=== PATIENT | male | born 1965 | race Caucasian/White ===

== ENCOUNTER 2023-08-27 08:30 | Outpatient (REF) | payer OTHER, SELFPAY ==
--- NOTE | ~2023-08-27 | US_ITS ---
EXAMINATION: US LOWER EXTREMITY VENOUS (REFLUX EXAM), BILATERAL CLINICAL INDICATION: Varicose veins of bilateral lower extremities COMPARISON: None. TECHNIQUE: Color flow triplex imaging and compression Doppler was performed to evaluate both the deep and the superficial systems bilaterally. To evaluate the superficial system, the examination was performed in the upright position. Color-flow Doppler ultrasound and compression ultrasound were utilized. In addition, maneuvers were utilized to demonstrate reflux. FINDINGS: 1. DEEP VENOUS ULTRASOUND OF THE RIGHT LOWER EXTREMITY: Common Femoral Vein: Compressible, normal respiratory variation and augmented flow. Femoral Vein: Compressible, normal color flow and augmentation. Popliteal Vein: Compressible, normal augmentation. Deep Reflux: There is no evidence of reflux in the deep system in either the common femoral vein or the popliteal vein. There is no evidence of a Swann's cyst. 2. SUPERFICIAL ULTRASOUND WITH DOPPLER OF RIGHT LOWER EXTREMITY: GREAT SAPHENOUS VEIN: Saphenofemoral Junction: 0.9 cm; Reflux: 0 ms Proximal Thigh: 0.5 cm; Reflux: 0 ms Mid Thigh: 0.4 cm; Reflux: Greater than 2456 ms Above Knee: 0.5 cm; Reflux: Greater than 2440 ms At Knee: 0.6 cm; Reflux: Greater than 2484 ms Below Knee: 0.6 cm; Reflux: Greater than 2836 ms Mid Calf: 0.2 cm; Reflux: 0 ms Ankle: 0.3 cm; Reflux: 0 ms DUPLICATED MEDIAL GREAT SAPHENOUS VEIN: Diameter: None Imaged Reflux: NA DUPLICATED LATERAL GREAT SAPHENOUS VEIN: Diameter: None Imaged Reflux: NA SMALL SAPHENOUS VEIN: Proximal: 0.2 cm; Reflux: 0 ms Distal: 0.2 cm; Reflux: 580 ms VEIN OF GIACOMINI: None Imaged. PERFORATORS: Location: 29 cm from calcaneus Size: 0.4 cm Reflux: 428 ms Location: Mid calf Size: 0.3 cm Reflux: 0 ms Location: Mid calf Size: 0.2 cm Reflux: 0 ms Location: Distal calf Size: 0.2 cm Reflux: 0 ms VARICOSITIES: Location: Mid small saphenous vein Size: 0.2 cm Reflux: 760 ms VARICOSITIES: Location: Distal small saphenous vein Size: 0.4 cm Reflux: Greater than 2680 ms VARICOSITIES: Location: Saphenofemoral junction Size: 0.4 cm Reflux: Greater than 2484 ms VARICOSITIES: Location: Proximal thigh Size: 0.4 cm Reflux: Greater than 2792 ms VARICOSITIES: Location: SFJ to mid thigh Size: 0.7 cm Reflux: Greater than 2820 ms VARICOSITIES: Location: Distal thigh Size: 0.5 cm Reflux: Greater than 2500 ms VARICOSITIES: Location: Proximal calf Size: 0.4 cm Reflux: Greater than 2640 ms VARICOSITIES: Location: Mid calf Size: 0.6 cm Reflux: 2708 ms 3. DEEP VENOUS ULTRASOUND OF THE LEFT LOWER EXTREMITY: Common Femoral Vein: Compressible, normal respiratory variation and augmented flow. Femoral Vein: Compressible, normal color flow and augmentation. Popliteal Vein: Compressible, normal augmentation. Deep Reflux: There is no evidence of reflux in the deep system in either the common femoral vein or the popliteal vein. There is no evidence of a Swann's cyst. 4. SUPERFICIAL ULTRASOUND WITH DOPPLER OF LEFT LOWER EXTREMITY: GREAT SAPHENOUS VEIN: Saphenofemoral Junction: 0.8 cm; Reflux: 0 ms Proximal Thigh: 0.6 cm; Reflux: 0 ms Mid Thigh: 0.3 cm; Reflux: 0 ms Above Knee: 0.4 cm; Reflux: 0 ms At Knee: 0.4 cm; Reflux: 0 ms Below Knee: 0.3 cm; Reflux: 0 ms Mid Calf: 0.3 cm; Reflux: 0 ms Ankle: 0.2 cm; Reflux: 0 ms DUPLICATED MEDIAL GREAT SAPHENOUS VEIN: Diameter: None Imaged Reflux: NA DUPLICATED LATERAL GREAT SAPHENOUS VEIN: Diameter: 0.6 cm Reflux: 0 ms SMALL SAPHENOUS VEIN: Proximal: 0.2 cm; Reflux: 0 ms Distal: 0.2 cm; Reflux: 0 ms VEIN OF GIACOMINI: 0.3 cm. No reflux PERFORATORS: Location: Small saphenous vein proximally Size: 0.2 cm Reflux: 0 ms Location: Mid small saphenous vein Size: 0.1 cm Reflux: 0 ms VARICOSITIES: Location: None Imaged Size: NA Reflux: NA US/US venous duplex LE BI IMPRESSION: 1. Right: Severe reflux >2836 ms in the right great saphenous vein (0.6 cm). 2. Multiple refluxing varicosities throughout the right lower extremity. 3. Left: No evidence of deep venous thrombosis or GSV reflux.
== END 2023-08-27 08:31 | disposition home or self-care (01) ==
LOC: HO.US 08:30
PROVIDERS: PCP Family Medicine; Visit Provider Surgery Vascular Surgery
DX: I83.893 Varicose veins of bilateral lower extremities with other complications (principal)
CPT/HCPCS: 93970

== ENCOUNTER 2023-09-23 15:25 | Outpatient (AMB) | payer OTHER, SELFPAY ==
--- NOTE | 2023-09-23 15:25 | MHC.OFFVIS ---
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 Gusman in [place]. Bilateral VV w/ Right LE worse than Left LE. Worse when on his feet. Of note had weight loss surgery 18 yrs ago and VV worsened after that. 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 Complaints include pain over varicosities, swelling of lower extremities, cramping, fatigue, and heaviness of the lower extremities. It has been affecting there daily activities including walking. It is noted more so in right leg. Patient denies any previous venous surgery or injections. Patient denies any history of DVT/ PE. Patient denies any history of phlebitis. Trial of compression includes - [id number] They now present for vascular evaluation regarding their varicose veins. [facility] Medical History (Updated 09/24/23 @ 12:39 by Geraldo Griffin MD) Herniated disc, cervical Surgical History (Updated 09/23/23 @ 15:35 by EDUIN Barrientos) H/O plastic surgery Status post ablation of incompetent vein using laser (~2012) Review of Systems Const Reports as per HPI ENT Reports no additional complaints Card Denies chest pain, Denies chest pain at rest and Denies chest pain with activity Resp Denies chest congestion and Denies cough GI Reports no additional complaints Musc Details: pain over varicosities, aching of lower extremities, swelling, cramping, heaviness and tiredness, itching Denies abnormal gait Skin/Breast Reports pruritus and Denies wounds Neuro Reports no additional complaints and Denies abnormal gait Psych Denies no additional complaints Physical Exam Vital Signs: BMI result Body Mass Index 33.2 Const General: cooperative, healthy appearing and comfortable Orientation/consciousness: oriented to person, oriented to place and oriented to time Neck Carotids: no bruits Chest Chest palpation & inspection: normal inspection of the chest and normal palpation of entire chest wall Resp Effort & Inspection: normal respiratory effort and able to speak in complete sentences Cardio Rate: regular rate Heart sounds: S1 normal heart sound present and S2 normal heart sound present Peripheral pulses: Peripheral pulses 2+ throughout GI Inspection: Yes normal to inspection Skin Other: +2 edema, large rope-like varicosities greater than 4 mm right calf and thigh CEAP Classification C4 - skin color changes Ep - Etiology Primary As - superficial veins P - reflux General skin exam: dry skin Neuro General: oriented to person, oriented to place and oriented to time Extrem Right lower extremity: full ROM, normal capillary refill and edema Left lower extremity: full ROM, normal capillary refill and edema Psych Mental Status: mental status grossly normal Results Reviewed Results Reviewed: Brief summary of venous insufficiency testing is as follows: right great saphenous vein: Positive right small saphenous vein: negative right accessory vein: Present and positive left great saphenous vein: negative left small saphenous vein: negative left accessory vein: none present Please note there is no evidence of any venous aneurysms or significant tortuosity Assessment & Plan Assessment & Plan (1) Varicose veins of right lower extremity with inflammation: Code(s): I83.11 - Varicose veins of right lower extremity with inflammation Category: Medical Plan: This patient has varicose veins with inflammation. They continue to be a source of discomfort for the patient. The patient has tried conservative treatment with compression, leg elevation and exercise program for over 3 months time. They have been compliant with all treatment. This has provided minimal relief for the patient. I do not anticipate this course of treatment will alter the underlying etiology. The patient has been scheduled for lower extremity venous treatment inclusive of --- right great saphenous vein Cyanoacralate ablation. Risks, benefits, and complications of this procedure has been discussed in detail with the patient including but not limited to bleeding, infection, and the development of a DVT. The patient has demonstrated a clear understanding and has consented. We will schedule the patient as soon as possible. Thank you for allowing us to participate in this patient's care. If there are any questions or concerns please do not hesitate to contact us. Coding Level of Care Code New Pt Level 4 (32375) Diagnoses Varicose veins of right lower extremity with inflammation I83.11
[2023-09-23 15:26] VITALS: BMI 33.2
== END 2023-09-24 08:43 | disposition home or self-care (01) ==
PROVIDERS: PCP Family Medicine; Visit Provider Surgery Vascular Surgery
DX: I83.11 Varicose veins of right lower extremity with inflammation (principal)
CPT/HCPCS: 99204

== ENCOUNTER → 2023-09-23 15:25 | Outpatient (BNVA) | payer OTHER, SELFPAY | PROVIDERS: PCP Family Medicine; Visit Provider Surgery Vascular Surgery | DX: I83.11 Varicose veins of right lower extremity with inflammation (principal) | CPT/HCPCS: 99202 ==

== ENCOUNTER 2023-10-03 13:31 | Outpatient (AMB) | payer OTHER, SELFPAY ==
[2023-10-03 13:49] VITALS: BMI 33.2
--- NOTE | 2023-10-03 13:49 | MHC.OFFVIS ---
Vital Signs 10/03/23 13:49 Height 5 ft 9 in Weight 225 lb BMI 33.2 Intake Visit Reasons: Right GSV Venaseal Accompanied by: Self / Same As Patient Allergies cephalexin [From Keflex] Allergy (Severe, Verified 10/03/23 13:49) Gastrointestinal Upset [facility] Medical History Herniated disc, cervical Surgical History H/O plastic surgery Status post ablation of incompetent vein using laser (~2012) Physical Exam Vital Signs: BMI result Body Mass Index 33.2 Office Procedures Vascular Office Procedure Details Details: Diagnosis: Right Leg varicose veins with inflammation Procedure: Endovenous Ablation of the right Great Saphenous Vein with VenaSeal Closure System Anesthesia: Local infiltration 5 cc, Estimated Blood Loss: min Specimen: none Duplex ultrasound was used to map out the insufficient saphenous vein, and access was determined and marked on the overlying skin. The depth and diameter of the vein(s) to be treated was documented. The patient was placed supine on the procedure table and the leg was prepped and draped using sterile technique. Ultasound guidance was again used to localize the access site. 1% lidocaine was injected as a local anesthetic in the subcutaneous tissues at the target location in the GSV in the lower leg. Using ultrasound guidance, access was gained at this location with the 19 gauge thin walled access needle and followed by introduction of a short guidewire, location confirmed with ultrasound. A small, 3 mm incision was made at the access site to allow for introduction and placement of the 7 Fr x7cm introducer/dilator. The dilator and guidewire were removed. The 0.035 guidewire from the VenaSeal kit was then introduced and positioned at the saphenofemoral junction using ultrasound guidance. The 80 cm 7 Fr introducer sheath/dilator was positioned 5cm from the saphenofemoral junction. The guidewire and dilator were removed, and the remaining sheath was flushed with sterile saline, with the syringe remaining in place prior to the next steps. The cyanoacrylate adhesive was precisely primed into the 5 F delivery catheter and this catheter/syringe combination was attached within the dispenser gun. This assembly was introduced through the 7F sheath and positioned 5 cm caudal of the saphenofemoral junction under ultrasound guidance. The steps from the IFU were followed for dispensing amounts, locations and compression times, 2 aliquots proximally with 3 minutes of compression, and 1 aliquot every 3 cm distally with 30 sec of compression along the course of the vessel. Following the last injection and compression sequence, the catheter and introducer sheath were pulled out from the access site. Hemostasis was achieved with manual compression and an adhesive bandage was applied to the incision. Ultrasound confirmed complete coaptation and closure of the treated segments of the GSV, and the absence of any DVT at the saphenofemoral junction. Treatment time was approximately 6 minutes and the vein length treated was 30 cm. The drapes were removed and the patient cleaned and prepared for discharge. Post op ultrasound check is scheduled for 48-72 hours and the patient was given written post-op instructions. 48507 - Endoven Ther Chem Adhes 1st All charges added?: Procedure code (CPT) selection complete Assessment & Plan Assessment & Plan (1) Varicose veins of right lower extremity with inflammation: Comment: 10/03/2023 - right great saphenous vein Cyanoacralate ablation Code(s): I83.11 - Varicose veins of right lower extremity with inflammation Category: Medical Plan: See op note Coding Level of Care Code Procedure Only Diagnoses Varicose veins of right lower extremity with inflammation I83.11 CPT Codes Details - Vascular 3: 75591 - Endoven Ther Chem Adhes 1st ([id number])
== END 2023-10-03 15:13 | disposition home or self-care (01) ==
PROVIDERS: PCP Family Medicine; Visit Provider Surgery Vascular Surgery
DX: I83.11 Varicose veins of right lower extremity with inflammation (principal)
CPT/HCPCS: 36482

== ENCOUNTER → 2023-10-03 13:31 | Outpatient (BNVA) | payer OTHER, SELFPAY | PROVIDERS: PCP Family Medicine; Visit Provider Surgery Vascular Surgery | DX: I83.11 Varicose veins of right lower extremity with inflammation (principal) | CPT/HCPCS: 36482 ==

== ENCOUNTER 2023-10-06 07:52 | Outpatient (REF) | payer OTHER, SELFPAY ==
--- NOTE | ~2023-10-06 | US_ITS ---
EXAMINATION: US VENOUS ULTRASOUND WITH DOPPLER LOWER EXTREMITY, RIGHT CLINICAL INFORMATION: s/p GSV venaseal 10/03/2023. Rule out DVT COMPARISON: Venous duplex ultrasound 08/27/2023 TECHNIQUE: Ultrasound of the deep veins is performed from the hip to the calf with compression sonography and color and pulse Doppler assessment. Spectral analysis with color-flow imaging is performed. FINDINGS: The great saphenous vein is closed 2.6 cm from the SFJ. There is normal venous compression and respiratory variation and augmented flow. The visualized common femoral vein, superficial femoral vein, profunda femoral vein, popliteal vein, and the trifurcation region shows no evidence of deep venous thrombosis. There is no significant popliteal fossa cyst. US/US venous duplex LE RT IMPRESSION: 1. The great saphenous vein is closed 2.6 cm from the SFJ. 2. No DVT demonstrated in the right lower extremity.
== END 2023-10-06 07:53 | disposition home or self-care (01) ==
LOC: HO.US 07:52
PROVIDERS: PCP Family Medicine; Visit Provider Surgery Vascular Surgery
DX: M79.604 Pain in right leg (principal)
CPT/HCPCS: 93971

== ENCOUNTER 2023-10-23 09:01 | Outpatient (AMB) | payer OTHER, SELFPAY ==
--- NOTE | 2023-10-23 09:05 | A.OFFVIS_ITS ---
Intake Visit Reasons: 2 week follow up R GSV Venaseal 10/03/23 Intake Note: Two week follow up s/p right gsv venaseal. Patient has no complaints. Allergies cephalexin [From Keflex] Allergy (Severe, Verified 10/23/23 09:05) Gastrointestinal Upset HPI HPI 2 week follow up R GSV Venaseal 10/03/23: Details: Very pleasant 57-year-old gentleman presents for follow-up status post right gr eat saphenous vein ablation. Reports in general leg swelling and discomfort have improved. He does have some right calf varicosities which have slightly decreased in size but still are source of pain and discomfort for him. He now presents for routine follow-up. Of note postprocedure ultrasound was negative for DVT PFSH Medical History Herniated disc, cervical Surgical History H/O plastic surgery Status post ablation of incompetent vein using laser (~2012) Review of Systems Const Reports as per HPI ENT Reports no additional complaints Card Denies chest pain, Denies chest pain at rest and Denies chest pain with activity Resp Denies chest congestion and Denies cough GI Reports no additional complaints Musc Details: pain over varicosities, aching of lower extremities, swelling, cramping, heaviness and tiredness, itching Denies abnormal gait Skin/Breast Reports pruritus and Denies wounds Neuro Reports no additional complaints and Denies abnormal gait Psych Denies no additional complaints Physical Exam Const General: cooperative, healthy appearing and comfortable Orientation/consciousness: oriented to person, oriented to place and oriented to time Neck Carotids: no bruits Chest Chest palpation & inspection: normal inspection of the chest and normal palpation of entire chest wall Resp Effort & Inspection: normal respiratory effort and able to speak in complete sentences Cardio Rate: regular rate Heart sounds: S1 normal heart sound present and S2 normal heart sound present Peripheral pulses: Peripheral pulses 2+ throughout GI Inspection: Yes normal to inspection Skin Other: +2 edema, large rope-like varicosities greater than 4 mm right calf and thigh CEAP Classification C4 - skin color changes Ep - Etiology Primary As - superficial veins P - reflux General skin exam: dry skin Neuro General: oriented to person, oriented to place and oriented to time Extrem Right lower extremity: full ROM, normal capillary refill and edema Left lower extremity: full ROM, normal capillary refill and edema Psych Mental Status: mental status grossly normal Assessment & Plan Assessment & Plan (1) Varicose veins of right lower extremity with inflammation: Comment: 10/03/2023 - right great saphenous vein Cyanoacralate ablation Code(s): I83.11 - Varicose veins of right lower extremity with inflammation Category: Medical Plan: This patient has varicose veins with inflammation. They continue to be a source of discomfort for the patient. The patient has tried conservative treatment with compression, leg elevation and exercise program for over 3 months time. They have been compliant with all treatment. This has provided minimal relief for the patient. I do not anticipate this course of treatment will alter the underlying etiology. The patient has been scheduled for lower extremity venous treatment inclusive of --- right leg microphlebectomy. Risks, benefits, and complications of this procedure has been discussed in detail with the patient including but not limited to bleeding, infection, and the development of a DVT. The patient has demonstrated a clear understanding and has consented. We will schedule the patient as soon as possible. Thank you for allowing us to participate in this patient's care. If there are any questions or concerns please do not hesitate to contact us. Coding Level of Care Code Est Pt Level 4 (54037) Diagnoses Varicose veins of right lower extremity with inflammation I83.11
== END 2023-10-23 09:19 | disposition home or self-care (01) ==
PROVIDERS: PCP Family Medicine; Visit Provider Surgery Vascular Surgery
DX: I83.11 Varicose veins of right lower extremity with inflammation (principal)
CPT/HCPCS: 99214

== ENCOUNTER → 2023-10-23 09:01 | Outpatient (BNVA) | payer OTHER, SELFPAY | PROVIDERS: PCP Family Medicine; Visit Provider Surgery Vascular Surgery | DX: I83.11 Varicose veins of right lower extremity with inflammation (principal) | CPT/HCPCS: 99212 ==

== ENCOUNTER 2023-12-01 09:07 | Day surgery (SDC) | payer OTHER, SELFPAY ==
[2023-12-01] VITALS (7 sets, daily range): BP systolic 131–165; BP diastolic 74–90; PULSE 57–72; RESP 12–16; TEMP 36.1–36.6; O2SAT 98–100; BMI 30.4
--- NOTE | 2023-12-01 07:38 | MHC.SHP ---
Pre-Procedural Eval Section A - 24 Hr Update-Section A only Date of Service: 12/01/23 The patient is an INPATIENT: No Changes since office visit: Yes Patient answered all questions The patient has been examined within 24 hours of the surgical procedure. The History & Physical has been completed within 30 days and I have reviewed it.: Yes Section B - Complete if H&P > 30 days Chief Complaint: Varicose veins of right lower extremity with infla Allergies: Allergies Allergy/AdvReac Type Severity Reaction Status Date / Time cephalexin [From Keflex] Allergy Severe Gastrointestinal Verified 10/23/23 09:05 Upset Plan I have reviewed the history and physical and performed a pertinent physical examination on my patient. No changes have occurred unless specified. Time Spent With Patient Time: Total time managing care of this patient today ____ minutes.
--- NOTE | 2023-12-01 09:05 | HO.ANESPROP2 ---
HPI - Anesthesia Eval Consult details Narrative: 57yo male patient for Right lower extremity Micro Phlebectomy PMFSH Active Problems Active Problems: All Active Problems (Updated 12/01/23 @ 14:02 by Cindy Ashley MD) Varicose veins of right lower extremity with inflammation (Acute) Marijuana- Last used a few days ago Past Medical History Medical History Herniated disc, cervical Family History Family history of problems with anesthesia: No Surgical History Surgical History Hx of removal of cyst Hx of cervical spine surgery H/O plastic surgery Status post ablation of incompetent vein using laser (~2012) History of Problems with Anesthesia: Yes (Urinary retention ) Social History Social History Patient Tobacco Use Status: Never used Tobacco Use of substances other than those prescribed or required for medical reasons: Yes Substance Use Type Other:: Smoke/Edibles Substance Use Frequency: Weekly Have you been hit, kicked, punched, or otherwise hurt by someone within the past year? If so, by whom?: No Are you DNR?: No Advance Directives: No Advance Directives Information Provided: Yes Recently lost weight without trying: No Meds Allergies Allergy/AdvReac Type Severity Reaction Status Date / Time cephalexin [From Keflex] Allergy Severe Gastrointestinal Verified 10/23/23 09:05 Upset Home Medications ?Medication ?Instructions ?Recorded ?Confirmed ?Last Taken ?Type ascorbate calcium (vitamin C) 500 500 mg PO DAILY 09/23/23 12/01/23 11/30/23 History mg tablet cholecalciferol (vitamin D3) 25 25 mcg PO DAILY 09/23/23 12/01/23 11/30/23 History mcg (1,000 unit) capsule multivitamin (Daily Multi-Vitamin 1 tab PO DAILY 09/23/23 12/01/23 11/30/23 History tablet) Exam Height,Weight and Vital Signs: Height 5 ft 9 in Weight 93.44 kg Vital Signs Temp Pulse Resp BP Pulse Ox O2 Del Method 12/01/23 09:34 97.0 F 65 16 165/90 H 98 Room Air Airway Mallampati Class: II TM Dist: >3cm Neck ROM: Full Loose/Missing/Broken Teeth: Yes (Missing tooth too left back) Heart: RRR Lungs: CTAB Assessment and Plan Assessment Anesthesia Assessment: Anesthesia Plan Discussed and Chart Reviewed Final Anesthetic Review Family History of Problems with Anesthesia: No History of Problems with Anesthesia: Yes (Urinary retention ) NPO: Yes ASA Class: II Final Preanesthetic Review: No Changes in Pt Med Stat, Meds/Allgs Chart Reviewed, Consent Obtained/Reviewed and Anes Risks/Benef Reviewed Patient Risk: Low Procedure Risk: Low Assessment/Block/Sedation in SS: Assess/Block/Sedation-SS Anesthetic Plan Anesthetic Plan: GA Disposition: Standard PACU
[2023-12-01] MEDS: Lactated Ringers 1,000 ML 80 ML IVCONT (09:38)
--- NOTE | 2023-12-01 15:10 | W.PM.OPN ---
Operative Note Operative Note Date of Service: 12/01/23 Narrative: Operative note by [facility] Preoperative diagnosis: Right leg varicose veins with inflammation Postoperative diagnosis: Same Procedure:1 right leg microphlebectomy (21) 2. Ligation of venous cluster (1) Surgeon:Geraldo Griffin M.D. General Maintenance Mechanic: None Anesthesia: General Specimens: 1 Drains: None Estimated blood loss: 100 mL Indications: 57-year-old gentleman with history significant for venous disease. He has significantly large varicosities greater than 5 mm which have been a source of pain and discomfort for him. He now presents for microphlebectomy. The patient has signed the informed consent after reviewing risks, complications, benefits, and alternatives previously discussed with the patient. The patient was given the opportunity to ask any additional questions or voice any concerns. All questions were answered to the patient's satisfaction. Procedure in detail: Varicose veins were marked in the standing position on the right leg and the patient was then placed in the supine position. The right lower extremity was prepared and draped to allow knee flexion in the sterile field. The patient had large superficial varicose veins with significant symptoms of pain. It was therefore determined to perform microphlebectomies of the clusters of varicose veins. The patient had bulging varicose veins which were previously marked in the standing position. A small stab incision was made longitudinally directly overlying the varicose vein in the calf and the varicose vein was grasped with a hemostat aided by a vein hook. It was then dissected as far proximally and distally as possible and avulsed. A total of 21 stab incisions were made and the procedure of stab phlebectomies was repeated 21 times. In addition there was a cluster in the right calf. Incision was made at the base of the cluster. The base was ligated with a 3-0 Vicryl stitch. Residual varicosities were removed with mosquito. Direct pressure was used for hemostasis Hemostasis was checked and stab incision sites were closed with steri-strips and sterile dressing was given with gauze and krilex wrap followed by an pieter bandage. There were no complications and blood loss was minimal. Post-Op instructions were given and a follow-up appointment was recommended. This note is constructed using voice recognition software. While every effort has been made to ensure accuracy, veneer stock layer errors may have been included. Thank you for allowing me to participate in the care of your patient. Yours sincerely, Geraldo Griffin MD, FACS, R.P.V.I.
== END 2023-12-01 16:38 | disposition home or self-care (01) ==
PROVIDERS: PCP Family Medicine; Visit Provider Surgery Vascular Surgery
PROC: (CPT 37766; principal; 2023-12-01 10:40)
DX: I83.11 Varicose veins of right lower extremity with inflammation (principal); Z79.899 Other long term (current) drug therapy; Z88.1 Allergy status to other antibiotic agents; Z98.890 Other specified postprocedural states
CPT/HCPCS: 37766; 37785; 88304; A4364; J0131; J0690; J1100; J2405; J2704; J2795; J3010; J3370

== ENCOUNTER → 2023-12-01 09:07 | Outpatient (BNV) | payer OTHER, SELFPAY | PROVIDERS: PCP Family Medicine; Visit Provider Surgery Vascular Surgery | DX: I83.11 Varicose veins of right lower extremity with inflammation (principal) | CPT/HCPCS: 37766; 37785 ==

== ENCOUNTER 2023-12-15 10:17 | Outpatient (AMB) | payer OTHER, SELFPAY ==
--- NOTE | 2023-12-15 10:28 | MHC.OFFWIV ---
Intake Vital Signs 12/15/23 10:33 Height 5 ft 9 in Weight 205 lb 8 oz BMI 30.3 BP 118/70 Blood Pressure Location Rt brachial Position Sitting Respiration 14 Pulse 87 Pulse Source Pulse Oximeter Temp 97.7 F Temp Source Skin Pulse Oximetry (%) 100 Oxygen Delivery Method Room Air Intake Visit Reasons: Body ache, fever and chills no congestion. Intake Note: patient complaining of dizziness, lightheaded, weak, shaky, body aches, fever, and heaviness when taking a deep breath x 1 week Patient Tobacco Use Status: Never used Tobacco Allergies cephalexin [From Keflex] Allergy (Severe, Verified 12/15/23 10:32) Gastrointestinal Upset HPI HPI Comments History of Present Illness Details 58 y/o M here today with complaints of feeling weak and dizzy. Reports that he had varicose vein removal of the right lower extremity 2 weeks ago. One week postoperatively he returned to exercise. Immediately after exercising he started to feel unwell, described initially as anxious and tired. He thought really nothing of it and thought that perhaps it was just the anesthesia wearing off. The next day while doing light chores around the house he began to feel weak, shaky, lightheaded, heaviness in his lungs with pain when he took a deep breath. He also has nausea without any vomiting. He was not sure if he was coming down with something so on Friday he went to bed to rest. He has been in bed and sedentary since this time trying to feel better. Reports that his symptoms did not improve. However upon waking this morning he does admit to feeling better. He does report 1 episode of fever. However denies any further URI symptoms such as sore throat, ear pain, runny nose, cough, chest congestion. Exam Awake alert oriented, no acute distress PERRLA Regular rate and rhythm Lung sounds clear to auscultation bilat Normal pedal pulses bilat. Right lower extremity with Steri-Strips intact over surgical incisions. Resolving ecchymosis to right thigh. No erythema, warmth or drainage to suggest infection. Plan Clinical suspicion for a pulmonary embolism given the story above. Advised to seek care in the emergency room. The patient is willing to go to [facility]. And expect has been called to [facility] emergency room at 10:57. The patient is stable and willing to go via private transport. Advised to not eat or drink and go directly to the emergency room. He should follow up with primary care once the workup is complete. This note is constructed using voice recognition software. While every effort has been made to ensure accuracy in composition stone applicator, still errors may have been included Sometimes, these errors may affect the content or meaning of the given sentence . Total time spent caring for the patient today was 30 minutes. This includes time spent before the visit reviewing the chart, time spent during the visit, and time spent after the visit on documentation PFSH Medical History Herniated disc, cervical Surgical History Hx of removal of cyst Hx of cervical spine surgery H/O plastic surgery Status post ablation of incompetent vein using laser (~2012) Social History Patient Tobacco Use Status: Never used Tobacco Physical Exam Vital Signs: Last Vital Signs Temp 97.7 F 12/15/23 10:33 Pulse 87 12/15/23 10:33 Resp 14 12/15/23 10:33 BP 118/70 12/15/23 10:33 Pulse Ox 100 12/15/23 10:33 Oxygen Delivery Method Room Air 12/15/23 10:33 BMI result Body Mass Index 30.3 Assessment & Plan Assessment & Plan (1) Suspected pulmonary embolism: Code(s): R09.89 - Other specified symptoms and signs involving the circulatory and respiratory systems (2) Varicose veins of right lower extremity with inflammation: Comment: 10/03/2023 - right great saphenous vein Cyanoacralate ablation Code(s): I83.11 - Varicose veins of right lower extremity with inflammation Plan: . (3) Chest pain: Code(s): R07.9 - Chest pain, unspecified Qualifiers: Chest pain type: chest pain on breathing Qualified Code(s): R07.1 - Chest pain on breathing Plan: . (4) Dizziness: Code(s): R42 - Dizziness and giddiness Plan: . Plan . Coding Level of Care Code Est Pt Level 4 (60977) Diagnoses Suspected pulmonary embolism R09.89 Varicose veins of right lower extremity with inflammation I83.11 Chest pain on breathing R07.1 Chest pain type: chest pain on breathing Dizziness R42
[2023-12-15 10:33] VITALS: BP 118/70; PULSE 87; RESP 14; TEMP 36.5; O2SAT 100; BMI 30.3
== END 2023-12-15 10:55 | disposition home or self-care (01) ==
PROVIDERS: PCP Family Medicine; Visit Provider Nurse Practitioner Family
DX: R09.89 Other specified symptoms and signs involving the circulatory and respiratory systems (principal); I83.11 Varicose veins of right lower extremity with inflammation; R07.1 Chest pain on breathing; R42 Dizziness and giddiness
CPT/HCPCS: 99214

== ENCOUNTER 2023-12-18 08:53 | Outpatient (AMB) | payer OTHER, SELFPAY ==
[2023-12-18 09:04] VITALS: BMI 30.3
--- NOTE | 2023-12-18 09:04 | MHC.OFFVIS ---
Vital Signs 12/18/23 09:04 Height 5 ft 9 in Weight 205 lb BMI 30.3 Intake Visit Reasons: 2 week follow up right leg micro Intake Note: 2 week follow up Right LE Micro 12/01/23. Pt states that his leg did have bruising but overall healed. He was sick the past week and a half and was in the ED & urgent care w/ suspected PE, but s/p CTA chest was negative. Accompanied by: Self / Same As Patient Allergies cephalexin [From Keflex] Allergy (Severe, Verified 12/18/23 09:13) Gastrointestinal Upset HPI HPI 2 week follow up right leg micro: Details: Very pleasant 58-year-old gentleman presents for follow-up status post right lower extremity operative microphlebectomy. This was done on 12/01/2023. Reports he did fairly well from that procedure. Postoperatively he did develop a viral illness and was concerned about that along with lower extremity pain. He did follow-up at an urgent care center which did do a workup for a PE which turned out to be negative. In terms of his leg now he is doing significantly better. Overall varicosities have decreased. He does have some postprocedure bruising and mild tenderness PFSH Medical History Herniated disc, cervical Surgical History Hx of removal of cyst Hx of cervical spine surgery H/O plastic surgery Status post ablation of incompetent vein using laser (~2012) Social History Patient Tobacco Use Status: Never used Tobacco Review of Systems Const All systems reviewed & are unremarkable except as noted in HPI and below Reports no additional complaints ENT Reports Normal hearing present Card Denies chest pain, Denies chest pain at rest, Denies chest pain with activity and Denies pedal edema Resp Denies cough GI Denies abdominal pain Musc Denies abnormal gait, Denies muscle cramps and Denies radiating pain into limb Skin/Breast Denies skin ulcer and Denies wounds Neuro Reports Normal hearing present and Denies abnormal gait Psych Reports no additional complaints Physical Exam Vital Signs: BMI result Body Mass Index 30.3 Const General: cooperative, healthy appearing and comfortable Orientation/consciousness: oriented to person, oriented to place and oriented to time HEENT Head: Yes normal to inspection Neck Neck: Yes normal visual inspection Carotids: no bruits Chest Chest palpation & inspection: normal inspection of the chest Resp Effort & Inspection: normal respiratory effort and able to speak in complete sentences Auscultation: clear to auscultation bilaterally, no crackles, no rales, no rhonchi and no wheezes Cardio Rate: regular rate Rhythm: regular rhythm Heart sounds: S1 normal heart sound present and S2 normal heart sound present Bruits: no carotid bruits Peripheral pulses: Peripheral pulses 2+ throughout GI Inspection: Yes normal to inspection Skin Other: Right leg incisions well healing Wounds: no wounds Hair: normal Neuro General: oriented to person, oriented to place and oriented to time Cranial nerves: Yes CN's II-XII intact bilaterally and Yes Normal hearing present Cognition (Neuro): normal cognition Motor exam (neuro): 5/5 motor strength present throughout Extrem Other: venous exam: No significant superficial varicosities or spider telangiectasias, minimal edema General: No clubbing, No cyanosis and No edema Psych Appearance: grossly normal Mental Status: mental status grossly normal Speech and movement: Normal speech and movement present Assessment & Plan Assessment & Plan (1) Varicose veins of right lower extremity with inflammation: Comment: 10/03/2023 - right great saphenous vein Cyanoacralate ablation 12/01/2023 - operative right leg microphlebectomy Code(s): I83.11 - Varicose veins of right lower extremity with inflammation Category: Medical Plan: The patient has done extremely well with all venous treatments. Patient's may often experience postprocedure phlebitic episodes and I have discussed with the patient use of warm compresses and NSAIDS if tolerated for pain discomfort. In addition, I have discussed continued conservative measures including use of compression, leg elevation, and exercise. The patient was also given an information sheet regarding appropriate use of compression stockings and future purchases. Thank you for allowing us to care for your patient with venous disease. Coding Level of Care Code Est Pt Level 3 (12050) Diagnoses Varicose veins of right lower extremity with inflammation I83.11
== END 2023-12-18 09:35 | disposition home or self-care (01) ==
PROVIDERS: PCP Family Medicine; Visit Provider Surgery Vascular Surgery
DX: I83.11 Varicose veins of right lower extremity with inflammation (principal)
CPT/HCPCS: 99024

== ENCOUNTER → 2023-12-18 08:53 | Outpatient (BNVA) | payer OTHER, SELFPAY | PROVIDERS: PCP Family Medicine; Visit Provider Surgery Vascular Surgery | DX: I83.11 Varicose veins of right lower extremity with inflammation (principal) | CPT/HCPCS: 99212 ==

== ENCOUNTER 2023-12-22 09:03 | Outpatient (AMB) | payer OTHER, SELFPAY ==
--- NOTE | 2023-12-22 09:47 | MHC.OFFWIV ---
Intake Vital Signs 12/22/23 09:48 Height 5 ft 9 in Weight 204 lb BMI 30.1 BP 116/82 Blood Pressure Location Lt brachial Position Sitting Pulse 80 Pulse Source Pulse Oximeter Temp 98.3 F Temp Source Oral Pulse Oximetry (%) 98 Oxygen Delivery Method Room Air Intake Visit Reasons: EP dizzy, fatigued, heavyness in chest/ache Intake Note: pt c/o dizziness, fatigue, heaviness in chest/ache. Started Patient Tobacco Use Status: Never used Tobacco Allergies cephalexin [From Keflex] Allergy (Severe, Verified 12/22/23 09:47) Gastrointestinal Upset Do you need a note to return to daycare/school/sports/work: No HPI HPI Comments History of Present Illness Details Patient is a 58-year-old male complaining of dizziness, fatigue and generally feeling unwell for the last few weeks. Patient states on November 30 he had some varicose veins removed by Dr. Griffin and has been feeling these symptoms since that date, off and on. He states they got dramatically worse about a week after the surgery where he could not get out of bed for a few days, he ended up going to an urgent care where they thought he had a pulmonary embolism because of his recent surgery so he went to the emergency room had a CTA where he was clear of a PE. He states he was told his vital signs were perfect and the recent they thought he had a PE was because of the surgery and the fact that he was getting short of breath while he was working out. He states he was generally just fatigued and had some pain when he took a deep breath but denied any head congestion or chest congestion. He states he has had on and off low-grade fevers and frontal headaches with a T-max of 100.6F during that time but they have resolved. He states he came in today because now he has started with right ear pain but denies any change in his hearing. He states he has had slight ear itching and irritation but not pain starting 10 months ago and that has just been lingering not an issue to where he needed to be evaluated. He also states the dizziness has gotten worse. He does not take an allergy medication each day and denies a history of seasonal allergies. He states he typically works out 4 to 5 times a week and is up doing 4-8 hours of house work each day so this has exhaustion he is feeling is far off from his baseline. [facility] Medical History Herniated disc, cervical Surgical History Hx of removal of cyst Hx of cervical spine surgery H/O plastic surgery Status post ablation of incompetent vein using laser (~2013) Social History Patient Tobacco Use Status: Never used Tobacco Review of Systems Const All systems reviewed & are unremarkable except as noted in HPI and below Physical Exam Vital Signs: Last Vital Signs Temp 98.3 F 12/22/23 09:48 Pulse 80 12/22/23 09:48 BP 116/82 12/22/23 09:48 Pulse Ox 98 12/22/23 09:48 Oxygen Delivery Method Room Air 12/22/23 09:48 BMI result Body Mass Index 30.1 Const General: cooperative, healthy appearing, comfortable and no acute distress Orientation/consciousness: patient oriented x3 Limitations: no limitations HEENT Head: Yes normal to inspection Ears: hearing grossly normal bilaterally, external ears normal, TM's normal bilaterally and Abnormal EAC present (right side) erythema and edema General nose exam: Normal external nose present, Normal nares present and No nasal discharge present Face and sinus: Yes normal facial exam and Yes sinuses nontender Mouth: Normal oral and palatal mucosa present and moist mucous membranes Throat: Yes tonsils normal, Yes uvula midline, Yes posterior oropharynx abnormal (Erythema) and Yes cobblestoning Eyes General: appearance normal, both eyes and all related structures Neck Neck: Yes normal visual inspection Resp Effort & Inspection: normal respiratory effort, able to speak in complete sentences, no respiratory distress, not tachypneic, no tripod positioning and no use of accessory muscles Auscultation: clear to auscultation bilaterally Cardio Rate: regular rate Rhythm: regular rhythm Heart sounds: normal S1 and S2 Skin General skin exam: no rashes or lesions noted Neuro General: patient oriented x3 Extrem General: Yes normal to inspection and Yes no clubbing, cyanosis or edema Assessment & Plan Assessment & Plan (1) Otitis externa: Code(s): H60.90 - Unspecified otitis externa, unspecified ear Plan: Sent eardrops to pharmacy, recommended using the Regina maneuver if no improvement in his dizziness. (2) Seasonal allergies: Code(s): J30.2 - Other seasonal allergic rhinitis Plan: Recommended starting a daily allergy pill based on the cobblestoning in his posterior oropharynx Plan See above Medications: New [id number] 3.5-10,000-1 mg/mL-unit/mL-% 4 drps otic (ear) right QID 7 days 10 mL 0RF Coding Level of Care Code Est Pt Level 3 (70759) Diagnoses Otitis externa H60.90 Seasonal allergies J30.2
[2023-12-22 09:48] VITALS: BP 116/82; PULSE 80; TEMP 36.8; O2SAT 98; BMI 30.1
== END 2023-12-22 10:45 | disposition home or self-care (01) ==
PROVIDERS: PCP Family Medicine; Visit Provider Physician Assistant
DX: H60.91 Unspecified otitis externa, right ear (principal); J30.2 Other seasonal allergic rhinitis

== ENCOUNTER → 2023-12-22 09:03 | Outpatient (BNVA) | payer OTHER, SELFPAY | PROVIDERS: PCP Family Medicine; Visit Provider Family Medicine | DX: H60.90 Unspecified otitis externa, unspecified ear (principal); J30.2 Other seasonal allergic rhinitis | CPT/HCPCS: 99212 ==